=== PATIENT | male | born 1955 | race Caucasian/White ===

== ENCOUNTER 2019-11-04 21:01 | Inpatient (IN) | payer MEDICARE, OTHER ==
[~2019-11-04] VITALS: Ht 177.8 cm; Wt 114.8 kg
[~2019-11-04 21:01] MED LIST: ATACAND HCT 321 EACH PO; BAYER CHEWABLE81 MG PO; CENTRUM SILVER1 EAC2 PO; FISH OIL 1,001000 M2 PO; LEVAQUIN 500 M500 M2 PO; LIPITOR20 MG PO; METFORMIN HCL500 MG PO; METOPROLOL SUCC25 M1 PO; NORVASC10 MG PO; NORVASC2.5 MG PO; PROPRANOLOL 1010 M1 PO; TYLENOL325 MG PO
[2019-11-04 21:02] VITALS: BP 156/90
[2019-11-04 21:43] LABS: ABSOLUTE BASOPHILS 0.1 thou/uL (0.0-0.2); ABSOLUTE EOSINOPHILS 0.3 thou/uL (0.0-0.7); ABSOLUTE MONOCYTES 0.6 thou/uL (0.0-1.2); ABSOLUTE NEUTROPHILS 5.1 thou/uL (1.6-8.1); BASOPHILS 1.1 %; EOSINOPHILS 4.2 %; HEMATOCRIT 42.5 % (42.0-52.0); LYMPHOCYTES 14.4 %; MCH 25.1 pg (26.0-34.0); MCHC 32.9 g/dL (28.0-37.0); MCV 76.4 fL (80.0-100.0); MONOCYTES 8.4 %; MPV 7.5 fl. (7.2-11.1); NUCLEATED RBCS 0 /100WBC; PLATELET COUNT* 275 thou/uL (150-400); POLYS 71.9 %; RBC 5.57 mil/uL (4.50-6.00); RDW-CV 16.2 % (10.5-14.5); WBC 7.1 thou/uL (4.0-11.0)
[2019-11-04 21:51] LABS: CALCIUM 8.7 mg/dL (8.5-10.1); CREATININE 1.2 mg/dL (0.6-1.3); POTASSIUM 3.1 mmol/L (3.5-5.1)
[2019-11-04 22:01] LABS: ALBUMIN 3.7 g/dL (3.4-5.0); MAGNESIUM 1.9 mg/dL (1.8-2.4); TOTAL BILIRUBIN 0.8 mg/dL (<0.1-1.0); TOTAL PROTEIN 6.9 g/dL (6.4-8.2)
[2019-11-05] VITALS (19 sets, daily range): BP systolic 134–173; BP diastolic 66–105
--- NOTE | 2019-11-05 02:39 | NUR ---
PT ADMITTED FOR CHEST PAIN. PT BOARDING IN ED.
--- NOTE | 2019-11-05 09:20 | NUR ---
PT MEDICATIONS HELD PRIOR TO SUPERVISOR MAINSPRING FABRICATION PROCEDURE PER DR. STACK INCLUDING AM BP MEDS AND INSULIN.
--- NOTE | 2019-11-05 10:14 | EKG ---
[place] [address] ELECTROCARDIOGRAM REPORT Name: CANDICEJAVI MCKEONITH Denzel Room: [place] [address] ADM IN [facility]#: [id number] Admission: 11/05/19 Attend Phys: Jayro Rubio, Discharge: Date of : 51 Date of Service: 11/04/192100 Report #: [id number] THIS REPORT FOR: //name// [facility] ED Test Date: 2019-11-04 Test Time: 21:01:09 Pat Name: ANI ASTUDILLO Department: Room: [facility] Gender: M Family Practice Physician: LAURA : 1955 Requested By: Jeison Balbuena Order Number: [id number] MD: Bob Randle Measurements Intervals [place] Rate: 94 P: 11 SC: 175 QRS: -32 QRSD: 111 T: 60 QT: 371 QTc: 464 Interpretive Statements Sinus rhythm incomplete RBBB Probable left atrial enlargement Inferior infarct, old Compared to ECG 11/04/2013 13:16:21 No significant changes Electronically Signed On 11-05-2019 10:12:15 CDT by Bob Randle [email or web address] <ELECTRONICALLY SIGNED> By: Bob Randle MD, [facility] 11/05/19 1012 00 00 Bob Randle MD, [facility] /EPI
--- NOTE | 2019-11-05 12:15 | NUR ---
ASSUMED CARE OF PT FROM CHAIR UPHOLSTERER. PT IS ONCATH CHECKS. PT HAS NO CO OF PAIN OR NAUSEA. AT THIS TIME. HE WAS EDUCATED ON FALL SAFETY AND STAYIN IMMOBILE. NO CO OF PAIN OR NAUSEA AT THIS TIME. WILL CONTINUE TO MONITOR.
--- NOTE | 2019-11-05 20:02 | NUR ---
PATIENT REPORTING CHEST PAIN UPON ASSESSMENT RATED 4/10. BP ELEVATED. ONE SUBLINGUAL NITROGLYCERIN ADMINISTERED WITH COMPLETED RELIEF OF CHEST PAIN. BLOOD PRESSURE IMPROVED WELL.
[2019-11-06 04:22] VITALS: BP 151/88
[2019-11-06 04:40] LABS: HEMATOCRIT 40.4 % (42.0-52.0); HEMOGLOBIN 13.5 gm/dL (14.0-18.0); MCH 25.3 pg (26.0-34.0); MCHC 33.4 g/dL (28.0-37.0); MCV 75.9 fL (80.0-100.0); MPV 7.5 fl. (7.2-11.1); NUCLEATED RBCS 0 /100WBC; PLATELET COUNT* 281 thou/uL (150-400); RBC 5.32 mil/uL (4.50-6.00); RDW-CV 16.1 % (10.5-14.5); WBC 8.2 thou/uL (4.0-11.0)
[2019-11-06 04:43] LABS: CALCIUM 8.1 mg/dL (8.5-10.1); CREATININE 0.9 mg/dL (0.6-1.3); POTASSIUM 3.6 mmol/L (3.5-5.1)
[2019-11-06 04:50] LABS: CHOLESTEROL 148 mg/dL (<200); HDL CHOLESTEROL 53 mg/dL (>40); LDL CHOLESTEROL 78 mg/dL (<100); SERUM ASSESSMENT Clear; TC:HDL 2.8 Ratio (Not establshd); TRIGLYCERIDE 87 mg/dL (<150); TROPONIN-I LEVEL 1.18 ng/mL (<0.06); VLDL 17 mg/dL (<40)
--- NOTE | 2019-11-06 05:01 | NUR ---
PATIENT PROGRESSING TOWARDS GOALS: PATIENT DENIES CHEST PAIN SINCE ADMINISTRATION OF NITROGLYCERIN. RIGHT GROIN CATH SITE BRUISING BORDERS MARKED, EXTENDING SLIGHTLY FROM START OF SHIFT BUT REMAINS SOFT AND NONTENDER TO TOUCH. DRESSING C/D/I. PATIENT REMAINS ON BEDREST AT THIS TIME. CALL LIGHT WITHIN REACH
[2019-11-06 06:03] LABS: ABSOLUTE BASOPHILS 0.1 thou/uL (0.0-0.2); ABSOLUTE LYMPHOCYTES 0.7 thou/uL (0.8-5.3); ABSOLUTE MONOCYTES 0.3 thou/uL (0.0-1.2); ABSOLUTE NEUTROPHILS 7.1 thou/uL (1.6-8.1)
[2019-11-06 06:04] LABS: OVALOCYTES Occasional; PLATELET ESTIMATE ADEQUATE
[2019-11-06 06:05] LABS: POIKILOCYTOSIS 1+
[2019-11-06 08:00] VITALS: BP 153/87
--- NOTE | 2019-11-06 08:00 | NUR ---
ASSUMED CARE OF PT FROM NIGHT NURSE. PT IS DOING WELL TODAY WITH NO CO OF PAIN OR NAUSEA AT THIS. HE WAS EDUCATED ON POC AND FALL SAFETY. BED INLOWEST POSITION. CALL LIGHT IN REACH, WILL CONTINUE TO MONITOR.
[2019-11-06 12:00] VITALS: BP 146/86
--- NOTE | 2019-11-06 12:13 | EKG ---
[place] [address] ELECTROCARDIOGRAM REPORT Name: ANI ASTUDILLO Room: [address] IN ..#: [id number] Admission: 11/05/19 Attend Phys: Jayro Rubio, Discharge: Date of : 51 Date of Service: 11/05/19 1325 Report #: [id number] THIS REPORT FOR: //name// [facility] Test Date: 2019-11-05 Test Time: 13:25:11 Pat Name: ANI ASTUDILLO Department: Room: [address] Gender: M Rug Dyer Helper: KREEDCiera : 1955 Requested By: Bob Randle Order Number: [id number] Reading MD: Bob Randle Measurements Intervals [place] Rate: 102 P: 28 OR: 178 QRS: -54 QRSD: 107 T: 58 QT: 361 QTc: 471 Interpretive Statements Sinus tachycardia Probable left atrial enlargement Inferior infarct, old Compared to ECG 11/04/2019 21:01:09 Sinus rhythm no longer present Right bundle-branch block no longer present Myocardial infarct finding still present Electronically Signed On 11-06-2019 12:11:44 CDT by Bob Randle [email or web address] <ELECTRONICALLY SIGNED> By: Bob Randle MD, [facility] 11/06/19 1211 1325 1325 Bob Randle MD, FAC /EPI
--- NOTE | 2019-11-06 12:17 | EKG ---
[place] [address] ELECTROCARDIOGRAM REPORT Name: ANI ASTUDILLO Room: [address] IN [facility]#: [id number] Admission: 11/05/19 Attend Phys: Jayro Rubio, Discharge: Date of : 51 Date of Service: 11/06/19 0616 Report #: [id number] THIS REPORT FOR: //name// [facility] Test Date: 2019-11-06 Test Time: 06:16:29 Pat Name: ANI ASTUDILLO Department: Room: [facility] Gender: M Ems Educator: : 1955 Requested By: Bob Randle Order Number: [id number] Priscilla MD: Bob Randle Measurements Intervals [place] Rate: 87 P: 9 GA: 194 QRS: -41 QRSD: 109 T: 63 QT: 400 QTc: 482 Interpretive Statements Sinus rhythm Probable left atrial enlargement Abnormal R-wave progression, late transition Inferior infarct, old Baseline wander in lead(s) V3 Electronically Signed On 11-06-2019 12:15:52 CDT by Bob Randle [email or web address] <ELECTRONICALLY SIGNED> By: Bob Randle MD, [facility] 11/06/19 1215 5 Bob Randle MD, [facility] /EPI
--- NOTE | 2019-11-06 14:07 | CARD ---
[address] [address] CARDIAC CATH REPORT Name: ANI ASTUDILLO Room: [address] IN [facility]#: [id number] Admission: 11/05/19 Attend Phys: Jayro Rubio MD Discharge: Date of : 51 Report #: [id number] THIS REPORT FOR: //name// cc: Alexander Acuna Vincent R. DO ~ APPROVED REPORT Study performed: 11/05/2019 09:23:16 Patient Details Patient Status: In-Patient Room #: The patient is a 64 year-old male Event Personnel Bob Randle Manager Medical Device, Arely Simpson RN, Isabela Kowalski RN RN, Lester Carrasco DIRECTOR OF PROVIDER RELATIONS Monitor, Saba Guerra RTR Scrub Procedures Performed cath pci Indication Abnormal ECG, Non-STEMI , Chest pain Risk Factors Hypercholesterolemia, Coronary Artery DiseaseHypertension Previous Procedures/Diagnoses Previous CABGPrevious PCI Admission/Lab Medications/Medications given during procedure Heparin Unfract. Procedure Narrative The patient was brought urgently to the Cardiac Catheterization Laboratory and was prepped and draped in a sterile manner. The right femoral was infiltrated with 1% Lidocaine subcutaneous anesthesia. A 6Fr X 23cm Sheath sheath was inserted into the right femoral artery. Coronary angiography was performed using coronary diagnostic catheters. The right coronary system was accessed and visualized with a Diagnostic - JR4 catheter. The left coronary system was accessed and visualized with a Diagnostic - JL4 catheter. The left ventricle was accessed and visualized with a Diagnostic - ANG PIG catheter. Left ventricular/Aortic Valve gradient assessed via catheter pullback. Left ventriculogram was performed [place] [address] CARDIAC CATH REPORT Name: ANI ASTUDILLO Room: [address]#: [id number] Admission: 11/05/19 Attend Phys: Jayro Rubio MD Discharge: Date of : 51 Report #: [id number] Closure device was deployed with a 6 Fr MynxGrip 6/7F. The patient tolerated the procedure well and there were no complications associated with the procedure. A hematoma occurred. DEL REAL GRAFT INJECTED with DEL REAL catheter SVG to CIRC injected -using jr4 SVG to RCA injected - --using jr4 Intraoperative Conscious Sedation Sedation start time: 1018 Case end Time: 1124 Fentanyl 50 mcg Versed 3 mg Fluoro Time: 17.9 minutes Dose: DAP 436599 cGycm2 2281 mGy Contrast Type and Amount: Visipaque 190 ml Coronary Angiography The patient's coronary anatomy is right dominant. [place] Artery Percent Stenosis DEL REAL graft to the mid LAD had 0% stenosis. The SVG to the circumflex, and the SVG to the RCA appeared 100% proximaly occluded Diagnostic Cath Left Main 95% proximal stenosis LAD 100% chronic occlusion in the mid LAD Diagonal 1 small vessel Diagonal 2 small vessel with 90% mid stenosis Diagonal 3 100% proximaly occluded Circumflex 50% proximal stenosis. Stent in the mid circumflex had 0% restenosis Right Coronary 100% chronic stenosis in the mid rca beyond the rv branch. The distal rca filled retrograde by collaterals from the left coronary artery. Left Ventriculography The left ventricular ejection fraction is estimated to be 60-65%. Left ventricular wall motion abnormalities are not present. There is no mitral insufficiency. Hemodynamics The aortic pressure is 151/80 mmHg with a mean of 118 mmHg. The left ventricular pressure is 161/21 mmHg with a mean of mmHg. The left ventricular end diastolic pressure is 30 mmHg. There was no gradient across the aortic valve upon pullback. Pullback from the left ventricle to the aorta revealed no gradient across [place] [address] CARDIAC CATH REPORT Name: ANI ASTUDILLO Room: [address]#: [id number] Admission: 11/05/19 Attend Phys: Jayro Rubio MD Discharge: Date of : 51 Report #: [id number] PCI Technique Lesion Anticoagulation was achieved with Heparin. Percutaneous coronary intervention was performed on the SVG to the circumflex artery.. The lesion stenosis prior to intervention was 100% with CAROLYN 0 flow. A 6F RCB 100CM Guide Catheter was used to engage the svg ostium. A Choice PT Wire 182cm Interventional Guidewire was used to cross the lesion. BALLOON DILATION Unable to cross the occlusion suggesting the stenosis represented a chronic occlusion Final angiography reveals 100 % stenosis with CAROLYN 0 flow. COMMENTS SVG to the RCA and CIRC attempted to intervention. Chronically closed. PCI Technique Lesion 2 Percutaneous Coronary Intervention was performed on the SVG to the rca. Percutaneous coronary intervention was performed on the SVG to the rca. The lesion stenosis prior to intervention was 100% with CAROLYN 0 flow. A 6 fr MTP Guide Catheter was used to engage the svg ostium. A choice PT extra support Interventional Guidewire was used to cross the lesion. Balloon Dilation Unable to advance the wire across the stenosis, suggesting the occlusion was chronic Final angiography reveals 100 % stenosis with CAROLYN 0 flow. Conclusion 1. 95% stenosis of the left main artery. 2. 100% chronic occlusion of the mid lad 3. no restenosis of stent in the mid circumflex artery. 4. 100% chronic occlusion of the rca 5. 100% chronic occlusion of svg's to the rca and circumflex artery. 6. unnsuccessful crossing of the occlusion in the svg to the circumflex and RCA 7. LVEF 60-65% [place] [address] CARDIAC CATH REPORT Name: ANI ASTUDILLO Room: [address] IN ..#: [id number] Admission: 11/05/19 Attend Phys: Jayro Rubio MD Discharge: Date of : 51 Report #: [id number] Recommendations consider stenting of the left main artery <ELECTRONICALLY SIGNED> By: Bob Randle MD, [facility] 11/06/19 1404 1404 1404Djody Randle MD, [facility] /INF
[2019-11-06 16:00] VITALS: BP 140/77
[2019-11-06 19:50] VITALS: BP 155/90
[2019-11-07] VITALS: BP 157/87
[2019-11-07 05:00] VITALS: BP 155/93
[2019-11-07 07:03] LABS: ABSOLUTE BASOPHILS 0.1 thou/uL (0.0-0.2); ABSOLUTE EOSINOPHILS 0.2 thou/uL (0.0-0.7); ABSOLUTE LYMPHOCYTES 1.2 thou/uL (0.8-5.3); ABSOLUTE MONOCYTES 0.9 thou/uL (0.0-1.2); ABSOLUTE NEUTROPHILS 6.5 thou/uL (1.6-8.1); BASOPHILS 0.7 %; EOSINOPHILS 2.6 %; HEMATOCRIT 39.7 % (42.0-52.0); HEMOGLOBIN 12.9 gm/dL (14.0-18.0); LYMPHOCYTES 13.6 %; MCHC 32.4 g/dL (28.0-37.0); MCV 77.1 fL (80.0-100.0); MONOCYTES 9.9 %; MPV 7.4 fl. (7.2-11.1); NUCLEATED RBCS 0 /100WBC; PLATELET COUNT* 241 thou/uL (150-400); POLYS 73.2 %; RBC 5.15 mil/uL (4.50-6.00); RDW-CV 16.1 % (10.5-14.5); WBC 8.9 thou/uL (4.0-11.0)
[2019-11-07 07:12] LABS: CALCIUM 8.1 mg/dL (8.5-10.1); CREATININE 0.8 mg/dL (0.6-1.3); POTASSIUM 3.4 mmol/L (3.5-5.1)
[2019-11-07 08:00] VITALS: BP 141/88
[2019-11-07 12:08] VITALS: BP 148/90
--- NOTE | 2019-11-07 12:50 | CON ---
[address] [address] CONSULTATION Name: ANI ASTUDILLO Room: [address] IN .R.#: [id number] Admission: 11/05/19 Attend Phys: Jayro Rubio MD Discharge: Date of : 51 Report #: [id number] THIS REPORT FOR: //name// cc: Alexander Acuna Vincent R. DO THIS REPORT FOR: //name// CC: Jayro Acuna DO DATE OF SERVICE: 11/05/2019 CARDIOLOGY CONSULTATION HISTORY OF PRESENT ILLNESS: The patient is a 64-year-old single white male who I was asked to see in the Emergency Room today after he complained of chest pain. The patient has an extensive past medical history. Unfortunately, none of his old records are available. The patient states that in 2000, he had chest pain when he walked. He was found to have multivessel coronary artery disease and underwent quadruple coronary artery bypass surgery at [facility]. Apparently, occluded vein grafts and the DEL REAL graft. He then moved to [place], [place]. In 2007, he had chest pain and had a repeat cardiac catheterization and had a 2.5 x 12 mm long coronary stent placed in the circumflex artery. He has done well since that time. He does note that recently when he exerts himself, he does develop a tightness in his chest. There has never been prolonged. Last night after dinner, he felt a pressure in his chest and in his left arm. Denied any diaphoresis, nausea or shortness of breath. Denied any recent fever, cough, bleeding. He had no belch with the episode. He called paramedics. He was given nitroglycerin and the pain eventually resolved after a couple of hours. He was admitted for further evaluation and treatment. He denies exertional dyspnea, palpitations or syncope. Does have occasional edema. PAST MEDICAL HISTORY: Otherwise, he had previous removal of part of his kidney for a mass. It was not cancer. He has diabetes, hypertension, hyperlipidemia. MEDICATIONS: Consist of metoprolol, aspirin, Lipitor, metformin, Atacand HCT, amlodipine. ALLERGIES: HE HAS A PREVIOUS REACTION TO INTRAVENOUS CONTRAST, WHICH HE DEVELOPED A RASH. FAMILY HISTORY: His father had heart disease. SOCIAL HISTORY: He is single, has no children, lives by himself. 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 No history of smoking or alcohol abuse. REVIEW OF SYSTEMS: He has had no history of stroke, asthma, peptic ulcer disease. He apparently had bloody stool in the past. Colonoscopy showed no significant abnormality. He has had a kidney stone. No cancer. PHYSICAL EXAMINATION: GENERAL: Revealed a middle-aged male who appeared in no distress. VITAL SIGNS: He had a blood pressure of 140/80, pulse is 80, he is afebrile. HEENT: He was anicteric. Conjunctivae are pink. Mucous membranes moist. NECK: Veins not distended. No carotid bruits. CHEST: Clear to auscultation. CARDIOVASCULAR: Regular rate and rhythm. No significant murmur. ABDOMEN: Soft. EXTREMITIES: Had no edema. Dorsalis pedis pulse 2+ bilaterally. SKIN: Warm, dry. NEUROLOGIC: Nonfocal. RADIOLOGICAL DATA: His ECG showed a normal sinus rhythm. His workup in the Emergency Room last night, he had a portable chest x-ray that showed normal heart size, clear lung jackson. LABORATORY DATA: Sodium 137, potassium is only 3.1, creatinine 1.2, glucose 316. His liver function studies were normal. Troponin initially 0.06, this morning is 0.71. His white blood cell count 7.1, hemoglobin 14.0. IMPRESSION AND RECOMMENDATIONS: 1. Non-ST elevation myocardial infarction. Recommend repeat cardiac catheterization. 2. Previous coronary artery bypass surgery. 3. Hypertension. The patient is on an ARB, beta-gen, calcium gen and diuretic. 4. Diabetes. 5. Hyperlipidemia. The patient is on a statin drug. 6. Previous history of kidney stone. 7. Contrast allergy. I would pretreat with steroids. <ELECTRONICALLY SIGNED> By: Bob Randle MD, [facility] 11/07/19 1250 0848 [id number] Randle MD, FAC /nt
--- NOTE | 2019-11-07 13:06 | NUR ---
PT IS RESTING IN BED AT THIS TIME. NO COMPLAINTS AT THIS TIME. SITE TO RIGHT GROIN IN TACT. PT TO BE OFF BEDREST STATUS AT 1330. WCTM
--- NOTE | 2019-11-07 13:39 | NUR ---
Pt is A&O. Resides at home alone. Independent. No DME. No hx of HH or SNF. Pt had a cath, no interventions were done. Per Pt, he thinks that he will have a repeat cath tomorrow with Dr Rajan. Cardiac rehab nurse to see. Goal is home at [place]. Following.
[2019-11-07 16:13] VITALS: BP 151/85
[2019-11-07 19:50] VITALS: BP 169/92
[2019-11-08] VITALS (14 sets, daily range): BP systolic 140–175; BP diastolic 68–102
--- NOTE | 2019-11-08 06:51 | NUR ---
PT ELEVATED BP, GIVEN MEDICATION, BP IM PROVED
[2019-11-08 07:47] LABS: ABSOLUTE BASOPHILS 0.1 thou/uL (0.0-0.2); ABSOLUTE EOSINOPHILS 0.3 thou/uL (0.0-0.7); ABSOLUTE LYMPHOCYTES 1.3 thou/uL (0.8-5.3); ABSOLUTE MONOCYTES 0.9 thou/uL (0.0-1.2); ABSOLUTE NEUTROPHILS 6.4 thou/uL (1.6-8.1); BASOPHILS 0.9 %; EOSINOPHILS 3.4 %; HEMATOCRIT 42.1 % (42.0-52.0); HEMOGLOBIN 13.6 gm/dL (14.0-18.0); LYMPHOCYTES 14.6 %; MCH 24.8 pg (26.0-34.0); MCHC 32.4 g/dL (28.0-37.0); MCV 76.6 fL (80.0-100.0); MONOCYTES 9.9 %; MPV 7.9 fl. (7.2-11.1); NUCLEATED RBCS 0 /100WBC; PLATELET COUNT* 277 thou/uL (150-400); POLYS 71.2 %; RBC 5.49 mil/uL (4.50-6.00); RDW-CV 16.4 % (10.5-14.5)
[2019-11-08 08:02] LABS: CALCIUM 8.6 mg/dL (8.5-10.1); CREATININE 0.8 mg/dL (0.6-1.3); POTASSIUM 3.7 mmol/L (3.5-5.1)
[2019-11-08 08:05] LABS: TROPONIN-I LEVEL 0.6 ng/mL (<0.06)
--- NOTE | 2019-11-08 09:01 | NUR ---
ASSUMED PT. CARE AND RECEIVED REPORT AT 0730. PT A/OX4, VSS, PT. DENIES CURRENT PAIN, JUST REPORTS TENDERNESS WITH PALPITATION AT PREVIOUS CATH SITE. FULL ASSESSMENT COMPLETED, REFER TO CHARTING. PT NPO FOR CATH TODAY, STATES UNDERSTANDING. CALL LIGHT IN REACH, WILL CONTINUE WITH PLAN OF CARE.
--- NOTE | 2019-11-08 12:56 | NUR ---
Per , Pt to have repeat cath today, plan dc home tomorrow.
--- NOTE | 2019-11-08 13:00 | NUR ---
ASSUMED CARE OF PATIENT THIS AFTERNOON. PT IS GETTING READY TO HAVE A CARDIAC CATH. WILL CONTINUE TO MONITOR
--- NOTE | 2019-11-08 15:31 | EKG ---
[place] [address] ELECTROCARDIOGRAM REPORT Name: ANI ASTUDILLO Room: [address] ADM IN ..#: [id number] Admission: 11/05/19 Attend Phys: Jayro Rubio, Discharge: Date of : 51 Date of Service: 11/08/19 1448 Report #: [id number] THIS REPORT FOR: //name// [facility] Test Date: 2019-11-08 Test Time: 14:48:42 Pat Name: ANI ASTUDILLO Department: Room: [address] Gender: M Med Surg Nurse: : 1955 Requested By: Eduardo Carr Order Number: [id number] Reading MD: Eduardo Carr Measurements Intervals [place] Rate: 97 P: 22 OR: 188 QRS: -42 QRSD: 105 T: 57 QT: 368 QTc: 468 Interpretive Statements Sinus rhythm Possible left atrial enlargement Inferior infarct, old Compared to ECG 11/06/2019 06:16:29 No significant changes Electronically Signed On 11-08-2019 15:30:42 CDT by Eduardo Carr [email or web address] <ELECTRONICALLY SIGNED> By: Eduardo Carr MD, FAC 11/08/19 1530 1448 1448 Eduardo Carr MD, [facility] /EPI
--- NOTE | 2019-11-08 16:00 | CARD ---
[address] [address] CARDIAC CATH REPORT Name: ANI ASTUDILLO Room: [address] IN [place].#: [id number] Admission: 11/05/19 Attend Phys: Jayro Rubio MD Discharge: Date of : 51 Report #: [id number] THIS REPORT FOR: //name// cc: Alexander Acuna Vincent R. DO ~ APPROVED REPORT Study performed: 11/08/2019 12:44:23 Patient Details Patient Status: In-Patient Room #: The patient is a 64 year-old male Event Personnel Eduardo Carr Resident Advisor, Wilbur Rajan Civil Drafting Technician, Mayi Villalobos RN Lawn Maintenance Worker, Celso Cooney PULMONARY PHYSICIAN Scrub, Osiris Villalobos RTR Monitor Dr. Bruno Rajan Procedures Performed Art Access - L femoral artery, ALEX Place w/wo Plasty Single Left Main , PTCA Addl Branch LAD PCIADDL , Hemostasis w/ Angioseal; selective coronary arteriography Indication Non-STEMI Risk Factors Hypercholesterolemia, Hypertension Admission/Lab Medications/Medications given during procedure Solumedrol IV 125 mg, Benadryl IV 50 mg, Angiomax IV 17 ml IV bolus, Angiomax Drip IV 40.18 ml per hr, Nitroglycerin SL 0.4 mg, Angiomax IV 4 ml IV bolus , Plavix PO 150 mg Procedure Narrative The patient was brought electively to the Cardiac Catheterization Laboratory and was prepped and draped in a sterile manner. The left femoral was infiltrated with 2% Lidocaine subcutaneous anesthesia. A 6F Shannon sheath was inserted into the left femoral artery. Coronary angiography was performed using coronary diagnostic catheters. The left coronary system was accessed and visualized with a 6F XB LAD 3.5 catheter. Pre-demployment femoral angiogram was performed . Closure device was deployed with a 6 Fr Angioseal STS. The patient tolerated the procedure well [place] [address] CARDIAC CATH REPORT Name: ANI ASTUDILLO Room: [address]#: [id number] Admission: 11/05/19 Attend Phys: Jayro Rubio MD Discharge: Date of : 51 Report #: [id number] complications associated with the procedure. There was no hematoma. This was a scheduled PCI procedure. Intraoperative Conscious Sedation Sedation start time: 13:41 Case end Time: 14:27 Fentanyl 100 mcg Versed 2 mg Fluoro Time: 15.8 minutes Dose: DAP 112857 cGycm2 2289 mGy Contrast Type and Amount: Visipaque 220 ml Hemodynamics The aortic pressure is 161/79 mmHg with a mean of 116 mmHg. PCI Technique Lesion Anticoagulation was achieved with Angiomax. Patient was preloaded with Angiomax IV 17 ml IV bolus. Percutaneous coronary intervention was performed on the Distal Left Main coronary artery/ Proximal Circumflex artery. The lesion stenosis prior to intervention was 90% with CAROLYN 3 flow. A 6F XB LAD 3.5 Guide Catheter was used to engage the left main ostium. A BMW 190cm Interventional Guidewire was used to cross the lesion. BALLOON DILATION A Balloon catheter Mini Trek RX 2.0 X 12 was inserted and inflated up to 18.00atm for 9seconds. Additional Inflation: 8.00atm for 18seconds. STENT DEPLOYMENT A drug-eluting stent Blackey RX Stent 2.24L92lt was inserted and inflated up to 15.00atm for 10seconds. Additional Inflation: 18.00atm for 8seconds. POST STENT DEPLOYMENT BALLOON DILATION A Balloon catheter NC Trek RX 3.0 X 8 was inserted and inflated up to 10.00atm for 5seconds. Additional Inflation: 16.00atm for 6seconds. Additional Inflation: 16.00atm for 6seconds. Final angiography reveals 10 % stenosis with CAROLYN 3 flow. PCI Technique Lesion 2 Percutaneous Coronary Intervention was performed on the proximal left anterior descending artery segment. Patient was preloaded with Angiomax IV 17 ml IV bolus. The lesion stenosis prior to intervention was 80% with CAROLYN 3 flow. A 6F XB LAD 3.5 Guide [place] [address] CARDIAC CATH REPORT Name: ANI ASTUDILLO Room: [address]#: [id number] Admission: 11/05/19 Attend Phys: Jayro Rubio MD Discharge: Date of : 51 Report #: [id number] engage the left main ostium. A ProwaterFlex 180CM Interventional Guidewire was used to cross the lesion. Balloon Dilation A Balloon catheter NC Trek RX 2.75 X 12 was inserted and inflated up to 18.00atm for 6seconds. Additional Inflation: 22.00atm for 5seconds. A Trek RX 2.5 x 12 was inserted and inflated up to 12 julia for 11 seconds. Additional Inflation: 14 julia for 4 seconds. Final angiography reveals 50 % stenosis with CAROLYN 3 flow. Conclusion 1. Severe coronary artery disease characterized by the following: A 90% calcified distal left main coronary stenosis B 75% ostial LAD stenosis with 100% mid vessel occlusion C 90% ostial circumflex stenosis with 60% mid vessel narrowing 2. Previously defined widely patent DEL REAL graft to the LAD 3. Successful PCI with deployment of a drug-eluting stent at the site of 90% distal left main coronary stenosis extending into the ostium of the circumflex with 10% residual narrowing 4. Successful PTCA at the site of ostial 75% LAD stenosis with 50% residual narrowing and CAROLYN III flow to the mid LAD 5. Mild systemic systolic hypertension Recommendations Cardiac Risk Reduction Program Aggressive Medical Therapy Medications Administered Aspirin (any) Diagnostic Cath Approved by: Eduardo Carr MD Date/Time: 11/08/2019 15:56:10 <ELECTRONICALLY SIGNED> By: Wilbur Rajan MD, [facility] 11/08/19 1559 1559 1559Wilbur Rajan MD, FAC /INF
[2019-11-09] VITALS: BP 157/99
[2019-11-09 03:53] VITALS: BP 169/95
[2019-11-09 06:25] LABS: HEMATOCRIT 41.5 % (42.0-52.0); HEMOGLOBIN 13.5 gm/dL (14.0-18.0); MCHC 32.6 g/dL (28.0-37.0); MCV 76.8 fL (80.0-100.0); MPV 7.8 fl. (7.2-11.1); RBC 5.4 mil/uL (4.50-6.00); RDW-CV 16.2 % (10.5-14.5); WBC 8.4 thou/uL (4.0-11.0)
--- NOTE | 2019-11-09 06:29 | NUR ---
ASSUMED CARE OF PT AFTER REPORT AT 1930. PT A&OX4. VSS. PHYSICAL ASSESSMENT COMPLETED AND CHARTED. PT ON O2 AT 2L NC. PT TRACING SR/ST ON TELE. PT UPADLIB TO RESTROOM. PT COMPLAINED OF LRFT GROIN PAIN-MED GIVEN PER JUL. POST CATH SITE TO LEFT GROIN CLEAN, DRY & INTACT. CALL LIGHT WITHIN REACH.
[2019-11-09 06:37] LABS: ALBUMIN 3.6 g/dL (3.4-5.0); CALCIUM 8.1 mg/dL (8.5-10.1); CREATININE 0.9 mg/dL (0.6-1.3); POTASSIUM 3.8 mmol/L (3.5-5.1); TOTAL PROTEIN 7.3 g/dL (6.4-8.2)
[2019-11-09 08:00] VITALS: BP 161/91
--- NOTE | 2019-11-09 08:10 | NUR ---
ASSUMED CARE OF PATIENT FROM NIGHT NURSE. PT HAS NO CO OF PAIN OR NAUSEA. HE WAS EDUCATED ON POC AND FALL SAFETY. HE IS WORKING TOWARDS DISCHARGE TODAY. BED IN LOWEST POSITION AND CALL LIGHT IN REACH.
[2019-11-09 12:25] VITALS: BP 149/75
[2019-11-09 16:45] LABS: BE -1.3 mmol/L (-2 to +3); PCO2 44.1 mmHg (35.0-45.0); pH 7.359 (7.340-7.450)
[2019-11-09 16:48] LABS: PO2 56.9 mmHg (75.0-100.0)
--- NOTE | 2019-11-09 17:06 | EKG ---
[place] [address] ELECTROCARDIOGRAM REPORT Name: ANI ASTUDILLO Room: [address] ADM IN ..#: [id number] Admission: 11/05/19 Attend Phys: Jayro Rubio, Discharge: Date of : 51 Date of Service: 11/09/19620 Report #: [id number] THIS REPORT FOR: //name// [facility] Test Date: 2019-11-09 Test Time: 06:21:47 Pat Name: ANI ASTUDILLO Department: Room: [address] Gender: M Dining Room Maid: [id number] : 1955 Requested By: Eduardo Carr Order Number: [id number] Priscilla MD: Wilbur Rajan Measurements Intervals [place] Rate: 88 P: NV: QRS: -39 QRSD: 114 T: 80 QT: 383 QTc: 464 Interpretive Statements Sinus rhythm Borderline IVCD with LAD Inferior infarct, old Compared to ECG 11/08/2019 14:48:42 Myocardial infarct finding still present Electronically Signed On 11-09-2019 17:04:52 CDT by Wilbur Rajan [email or web address] <ELECTRONICALLY SIGNED> By: Wilbur Rajan MD, [facility] 11/09/19 1704 0 Wilbur Rajan MD, [facility] /EPI
[2019-11-09 20:00] VITALS: BP 133/63
[2019-11-09 23:58] VITALS: BP 125/70
[2019-11-10 04:00] VITALS: BP 153/93
--- NOTE | 2019-11-10 06:12 | NUR ---
ASSUMED CARE OF PT AFTER REPORT AT 1930. PT A&OX4. VSS. PHYSICAL ASSESSMENT COMPLETED AND CHARTED. PT ON O2 AT 3L NC. PT TRACING SR ON TELE. PT UPADLIB TO RESTROOM. FLEET JONATAN GIVEN-ABLE TO HAVE BM. PT AANBLE TO SLEEP WELL ON BED. CALL LIGHT WITHIN REACH.
[2019-11-10 08:00] VITALS: BP 124/78
--- NOTE | 2019-11-10 11:09 | NUR ---
ASSUMED PT CARE AT 0730, PT SITTING UP IN BED, SATTING 92% ON RA, TRACING SR ON THE OUTREACH LIBRARIAN AND HAS NO C/O PAIN OR SHORTNESS OF BREATH BUT STATES HIS LOWER ABD IS STILL A LITTLE UNCOMFORTABLE, BUT IT'S BETTER THAN YESTERDAY AFTER HAVING A LARGE BM. PT HAD ANOTHER BM THIS MORNING AND HAS AMBULATED MULTIPLE TIMES TODAY TO ENCOURAGE GI MOTILITY. PT L GROIN CATH SITE C/D/I W/ BANDAID IN PLACE AND RT GROIN CATH SITE HAS BRUISING OVER RUE, GROIN AND RT HIP W/ NODULE NOTED UNDER CATH SITE. PT GOAL IS TO INCREASE ACTIVITY AND CONTINUE TO HAVE BM'S TO DECREASE ABD DISCOMFORT AND WORK ON DC PLANNING. AM ASSESSMENT CHARTED, MEDS PER MAR, HOURLY ROUNDING OBSERVED, PT IS UP AD ALANA, WILL CONTINUE POC.
[2019-11-10] MEDS ORDERED: NITROGLYCERIN0.4 MG SUBLING (11:40)
[2019-11-10] MEDS ORDERED: EFFIENT10 MG PO (11:42)
[2019-11-10 11:48] VITALS: BP 164/83
[2019-11-10 12:00] VITALS: BP 145/85
--- NOTE | 2019-11-10 17:00 | NUR ---
DC ORDERS RECEIVED. DC INSTRUCTIONS, SCRIPTS, CARE NOTES AND F/U APPTS. GIVEN TO PT, PT COMMUNICATES UNDERSTANDING OF DC TEACHING. RESEARCH ADVISOR AND IV REMOVED. PT DC'D BY WC W/ NURSING STAFF TO NEIGHBOR'S PERSONAL VEHICLE.
== END 2019-11-10 16:50 | disposition home or self-care (01) | DRG 246 ==
LOC: M.ERS 21:01 → M.TBA-ER 22:55 → M.2W 11-05 08:09 → M.TBA-ER 11-05 08:09 → M.2W 11-05 12:10
PROVIDERS: Emergency Medicine Emergency Medical Services; Internal Medicine Cardiovascular Disease; ADMIT Internal Medicine; ATTEND Internal Medicine
PROC: B213YZZ Fluoroscopy of Multiple Coronary Artery Bypass Grafts using Other Contrast (ICD-10-PCS; principal; 2019-11-05)
PROC: B211YZZ Fluoroscopy of Multiple Coronary Arteries using Other Contrast (ICD-10-PCS; principal; 2019-11-05)
PROC: B218YZZ Fluoroscopy of Left Internal Mammary Bypass Graft using Other Contrast (ICD-10-PCS; principal; 2019-11-05)
PROC: 02JA3ZZ Inspection of Heart, Percutaneous Approach (ICD-10-PCS; principal; 2019-11-05)
PROC: 4A023N7 Measurement of Cardiac Sampling and Pressure, Left Heart, Percutaneous Approach (ICD-10-PCS; principal; 2019-11-05)
PROC: B215YZZ Fluoroscopy of Left Heart using Other Contrast (ICD-10-PCS; principal; 2019-11-05)
PROC: 3E053GC Introduction of Other Therapeutic Substance into Peripheral Artery, Percutaneous Approach (ICD-10-PCS; 2019-11-07)
PROC: B41FYZZ Fluoroscopy of Right Lower Extremity Arteries using Other Contrast (ICD-10-PCS; 2019-11-08)
PROC: B211YZZ Fluoroscopy of Multiple Coronary Arteries using Other Contrast (ICD-10-PCS; 2019-11-08)
PROC: 027034Z Dilation of Coronary Artery, One Artery with Drug-eluting Intraluminal Device, Percutaneous Approach (ICD-10-PCS; 2019-11-08)
PROC: 4A023N7 Measurement of Cardiac Sampling and Pressure, Left Heart, Percutaneous Approach (ICD-10-PCS; 2019-11-08)
PROC: 02703ZZ Dilation of Coronary Artery, One Artery, Percutaneous Approach (ICD-10-PCS; 2019-11-08)
DX: I21.4 Non-ST elevation (NSTEMI) myocardial infarction (principal); I50.31 Acute diastolic (congestive) heart failure; K56.7 Ileus, unspecified; E11.9 Type 2 diabetes mellitus without complications; E78.5 Hyperlipidemia, unspecified; K59.00 Constipation, unspecified; I25.10 Atherosclerotic heart disease of native coronary artery without angina pectoris; E66.9 Obesity, unspecified; R25.1 Tremor, unspecified; I11.0 Hypertensive heart disease with heart failure; S30.1XXA Contusion of abdominal wall, initial encounter; I72.9 Aneurysm of unspecified site; Z95.1 Presence of aortocoronary bypass graft; Z95.5 Presence of coronary angioplasty implant and graft; Z90.5 Acquired absence of kidney; Z91.041 Radiographic dye allergy status; Z68.36 Body mass index [BMI] 36.0-36.9, adult; Z82.49 Family history of ischemic heart disease and other diseases of the circulatory system; Z79.82 Long term (current) use of aspirin; Z79.899 Other long term (current) drug therapy; X58.XXXA Exposure to other specified factors, initial encounter; Y93.89 Activity, other specified; Y92.89 Other specified places as the place of occurrence of the external cause; Y99.8 Other external cause status

== ENCOUNTER 2020-03-14 07:28 | Observation (INO) | payer MEDICARE, OTHER ==
[~2020-03-14] VITALS: Ht 177.8 cm; Wt 100.7 kg
[2020-03-14] VITALS (15 sets, daily range): BP systolic 130–149; BP diastolic 74–96
--- NOTE | ~2020-03-14 | H ---
[address] [address] HISTORY AND PHYSICAL Name: ANI ASTUDILLO Room: [address] Ge Mcgill#: [id number] Admission: 03/14/20 Attend Phys: Wilbur Rajan MD, Discharge: 03/15/20 Date of : 51 Report #: [id number] THIS REPORT FOR: //name// cc: Alexander Acuna Vincent R. DO ~ Please refer to the History and Physical performed in the physician's office. By: 0700Medical Records Staff ALICIA /JADE
[~2020-03-14 07:28] MED LIST changes: +EFFIENT10 MG PO; +NITROGLYCERIN0.4 MG SUBLING
[2020-03-14 08:10] LABS: HEMATOCRIT 46.9 % (42.0-52.0); HEMOGLOBIN 15.2 gm/dL (14.0-18.0); MCH 24.7 pg (26.0-34.0); MCHC 32.5 g/dL (28.0-37.0); MCV 76.1 fL (80.0-100.0); MPV 7.6 fl. (7.2-11.1); RBC 6.16 mil/uL (4.50-6.00); RDW-CV 16.4 % (10.5-14.5)
[2020-03-14 08:20] LABS: ANION GAP 15 mmol/L (7-16); BUN 19 mg/dL (7-18); CALCIUM 9.7 mg/dL (8.5-10.1); CHLORIDE 95 mmol/L (98-107); CO2 25 mmol/L (21-32); CREATININE 1.1 mg/dL (0.6-1.3); GLUCOSE 386 mg/dL (70-99); POTASSIUM 3.8 mmol/L (3.5-5.1); SODIUM 135 mmol/L (136-145)
[2020-03-14] MEDS ORDERED: CANDESARTAN-HC1 EAC2 PO (08:21)
[2020-03-14 08:23] LABS: APTT 23.8 Seconds (25.0-31.3); PROTIME 10.8 Seconds (9.20-11.50)
[2020-03-14 08:25] LABS: ALKALINE PHOSPHATASE 71 U/L (46-116); CHOLESTEROL 143 mg/dL (<200); HDL CHOLESTEROL 52 mg/dL (>40); LDL CHOLESTEROL 74 mg/dL (<100); SGOT 13 U/L (15-37); SGPT 29 U/L (30-65); TC:HDL 2.8 Ratio (Not establshd); TOTAL BILIRUBIN 0.8 mg/dL (<0.1-1.0); TOTAL PROTEIN 8.1 g/dL (6.4-8.2); TRIGLYCERIDE 88 mg/dL (<150); VLDL 18 mg/dL (<40)
[2020-03-14] MEDS ORDERED: NIACIN ER1000 MG PO (08:25)
[2020-03-14] MEDS ORDERED: PROPRANOLOL PO (08:25)
[2020-03-14 08:26] LABS: SERUM ASSESSMENT Clear
[2020-03-14] MEDS ORDERED: FARXIGA10 MG PO (08:26)
--- NOTE | 2020-03-14 17:01 | NUR ---
AFTER 1630 VS, GROIN CHECK, AND GROIN DRSG CHANGE PT AMBULATED TO BR WITH SBA. GROIN CHECKED AFTER RETURN TO BED, NO DRNG NOTED TO NEW [place]AU[place] DRSG, NO HEMATOMA. DRESSING REMAINS C/D/I AT THIS TIME, NO HEMATOMA OR ALTERED SENSATION OF RLE. R PEDAL AND POSTERIOR PULSES REMAIN 2+, CONSISTENT WITH PREOP FINDINGS.
--- NOTE | 2020-03-14 17:49 | EKG ---
[place] [address] ELECTROCARDIOGRAM REPORT Name: JAVI ASTUDILLOITH Denzel Room: [address] M.R.#: [id number] Admission: 03/14/20 Attend Phys: Jorge Luis Montoya Discharge: Date of : 51 Date of Service: 03/14/20 0806 Report #: [id number] THIS REPORT FOR: //name// [facility] Test Date: 2020-03-14 Test Time: 08:06:07 Pat Name: ANI ASTUDILLO Department: Room: [facility] Gender: M Sole Tier: : 1955 Requested By: Wilbur Rajan Order Number: [id number] Priscilla MD: Eduardo Carr Measurements Intervals [place] Rate: 79 P: 15 CO: 189 QRS: -39 QRSD: 111 T: 87 QT: 396 QTc: 455 Interpretive Statements Sinus rhythm Probable left atrial enlargement Inferior infarct, old Compared to ECG 11/09/2019 06:21:47 No significant changes Electronically Signed On 03-14-2020 17:48:55 CDT by Eduardo Carr [email or web address] <ELECTRONICALLY SIGNED> By: Eduardo Carr MD, FACC 03/14/20 1748 5 5 Eduardo Carr MD, FACC /EPI
--- NOTE | 2020-03-14 17:49 | EKG ---
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 : 1955 Requested By: Wilbur Rajan Order Number: [id number] Priscilla MD: Eduardo Carr Measurements Intervals [place] Rate: 83 P: 15 CO: 185 QRS: -46 QRSD: 111 T: 111 QT: 397 QTc: 467 Interpretive Statements Sinus rhythm Left atrial enlargement RSR' in V1 or V2, probably normal variant Inferior infarct, old Lateral leads are also involved Compared to ECG 03/14/2020 08:06:07 RSR' in V1 or V2 now present Myocardial infarct finding still present Electronically Signed On 03-14-2020 17:49:42 CDT by Eduardo Carr [email or web address] <ELECTRONICALLY SIGNED> By: Eduardo Carr MD, FACC 03/14/20 1749 05 05 Eduardo Carr MD, FACC /EPI
[2020-03-15 01:40] VITALS: BP 147/83
[2020-03-15 03:38] LABS: HEMATOCRIT 42.9 % (42.0-52.0); HEMOGLOBIN 13.7 gm/dL (14.0-18.0); MCHC 31.9 g/dL (28.0-37.0); MCV 75.4 fL (80.0-100.0); MPV 7.6 fl. (7.2-11.1); RBC 5.69 mil/uL (4.50-6.00); RDW-CV 16.1 % (10.5-14.5); WBC 14.2 thou/uL (4.0-11.0)
[2020-03-15 04:00] VITALS: BP 135/80
[2020-03-15 04:12] LABS: ALBUMIN 3.5 g/dL (3.4-5.0); ALKALINE PHOSPHATASE 57 U/L (46-116); ANION GAP 12 mmol/L (7-16); BUN 27 mg/dL (7-18); CALCIUM 8.9 mg/dL (8.5-10.1); CHLORIDE 100 mmol/L (98-107); CO2 26 mmol/L (21-32); CREATININE 1.1 mg/dL (0.6-1.3); GLUCOSE 247 mg/dL (70-99); POTASSIUM 3.1 mmol/L (3.5-5.1); SGOT 8 U/L (15-37); SGPT 22 U/L (30-65); SODIUM 138 mmol/L (136-145); TOTAL PROTEIN 6.5 g/dL (6.4-8.2); TROPONIN-I LEVEL <0.06 ng/mL (<0.06)
--- NOTE | 2020-03-15 06:49 | NUR ---
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 PT DENIES CHEST PAIN THIS SHIFT. SEROSANGUENOUS DRANAGE ON DRESSING TO RIGHT GROIN. NEGATIVE SEPSIS SCREENING. HOURLY ROUNDING COMPLETED. CALL LIGHT WITHIN REACH.
[2020-03-15 08:00] VITALS: BP 157/81
[2020-03-15 10:45] VITALS: BP 143/87
--- NOTE | 2020-03-15 10:47 | D ---
[address] [address] DISCHARGE SUMMARY Name: CANDICEANI Room: [address] Ge Mcgill#: [id number] Admission: 03/14/20 Attend Phys: Wilbur Rajan MD, Discharge: Date of : 51 Report #: [id number] THIS REPORT FOR: //name// cc: Alexander Acuna Vincent R. DO THIS REPORT FOR: //name// CC: Wilbur Acuna DATE OF SERVICE: 03/15/2020 FINAL DISCHARGE DIAGNOSES: 1. Unstable angina. 2. Coronary artery disease. 3. Status post remote myocardial infarction. 4. Status post coronary artery bypass grafting. 5. Status post percutaneous coronary intervention of the left main and mid circumflex. 6. Type 2 diabetes. 7. Obesity. 8. Hypertension. PROCEDURES: 03/14/2020 -- left heart catheterization, selective coronary arteriography, aortocoronary saphenous vein bypass graft study, and PCI of the left main and mid circumflex. HOSPITAL COURSE: The patient is a very pleasant 64-year-old male with complex coronary artery disease, status post remote coronary artery bypass grafting and more recent PCI. Of late, he has demonstrated angina following a pattern of clinical instability. He has underlying hypertension, diabetes and hyperlipidemia. In that context, I performed cardiac catheterization on 03/14, which revealed 90% mid and distal left main stenosis with 90% ostial circumflex narrowing and 75% mid circumflex narrowing. There was a widely patent DEL REAL graft to the LAD. There was collateralization from the distal LAD to the right coronary artery. Right coronary artery and the graft to that vessel were occluded. Given this data, I performed a complex PCI with arthrotomy/atherectomy and stenting of the left main and angioplasty with stenting of the mid circumflex with 0 and 10% residual narrowing following final stent deployment and CAROLYN 3 flow of the distal vessel. Troponin did not rise at 0.06. Additional lab revealed a sodium of 138, potassium 3.1, BUN 27, creatinine 1.1, glucose 247. White blood cell count 14,200; hemoglobin 13.7; platelets 307,000. [place] [address] DISCHARGE SUMMARY Name: ANI ASTUDILLO Denzel Room: [address]#: [id number] Admission: 03/14/20 Attend Phys: Wilbur Rajan MD, Discharge: Date of : 51 Report #: [id number] In this clinical context, the patient ambulated in the hallways without difficulty, following PCI on 03/14/2020. DISCHARGE MEDICATIONS: He was discharged to home on the following medications: Effient 10 mg daily, aspirin 81 mg daily, metoprolol tartrate 50 mg b.i.d., atorvastatin 40 mg at bedtime, and resumption of previously utilized metformin. I will plan to see him in followup in 4 weeks. <ELECTRONICALLY SIGNED> By: Wilbur Rajan MD, FACC 03/15/20 1047 1034 1042Wilbur Rajan MD, FACC /nt
--- NOTE | 2020-03-15 11:58 | NUR ---
Pt is A&O. Resides at home alone. Independent. No DME. No hx of HH or SNF. Pt had a cath with stents yesterday, discharging to home today, no needs.
[2020-03-15 12:00] VITALS: BP 131/84
--- NOTE | 2020-03-15 13:07 | EKG ---
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1955 Requested By: Wilbur Rajan Order Number: [id number] Reading MD: Bob Randle Measurements Intervals [place] Rate: 82 P: 9 OR: 183 QRS: -51 QRSD: 118 T: 103 QT: 411 QTc: 480 Interpretive Statements Sinus rhythm Probable left atrial enlargement Nonspecific IVCD with LAD Inferior infarct, old Lateral leads are also involved Compared to ECG 03/14/2020 12:06:21 Myocardial infarct finding still present Electronically Signed On 03-15-2020 13:07:04 CDT by Bob Randle [email or web address] <ELECTRONICALLY SIGNED> By: Bob Randle MD, [facility] 03/15/20 1307 Bob Randel MD, [facility] /EPI
[2020-03-15 13:37] VITALS: BP 131/84
--- NOTE | 2020-03-15 15:26 | NUR ---
I ASSUMED CARE OF THE PATIENT AT 0700. HE IS ALERT AND ORIENTED X4 AND IS UP AD ALANA. HE WAS STABLE FOR DISCHARGE AFTER EPI WAS INJECTED INTO THE FEMORAL SITE. CARDIOLOGY FOLLOWUP WAS SCHEDULED. BLOOD SUGAR IS MONITORED AND TREATED WITH INSULIN. POTASSIUM WAS REPLACED. PATIENT NEEDS WERE MET DURING HOURLY ROUNDING. DISCHARGED TO HOME WITH HIS AT 1350.
--- NOTE | 2020-03-15 16:34 | CARD ---
[address] [address] CARDIAC CATH REPORT Name: ANI ASTUDILLO Room: [address] Ge Mcgill#: [id number] Admission: 03/14/20 Attend Phys: Wilbur Rajan MD, Discharge: 03/15/20 Date of : 51 Report #: [id number] THIS REPORT FOR: //name// cc: Alexander Acuna Vincent R. DO ~ APPROVED REPORT Study performed: 03/14/2020 08:35:44 Patient Details Patient Status: Out-Patient Room #: The patient is a 64 year-old male Event Personnel Wilbur Rajan Braiding Machine Tender, Lindsey Landry RN RN, Lester Carrasco Scrub, Osiris Villalobos RTR Monitor Procedures Performed Art Access - R femoral artery, Left Heart Cath w/ LV, Athrectomy and BRENDAN Left Main, Brendan CIRC Indication Unstable angina Risk Factors Hypertension, Diabetes Previous Procedures/Diagnoses Previous CABGPrevious PCI Admission/Lab Medications/Medications given during procedure Angiomax IV 15 ml, Angiomax Drip IV 35.2 ml per hr, Angiomax IV 4 ml, Effient PO 30 mg, Aspirin PO 162 mg Procedure Narrative The patient was brought electively to the Cardiac Catheterization Laboratory and was prepped and draped in a sterile manner. The right femoral was infiltrated with 2% Lidocaine subcutaneous anesthesia. A 6F [place] sheath was inserted into the . Coronary angiography was performed using coronary diagnostic catheters. The left coronary system was accessed and visualized with a 6F JL4 catheter. The left ventricle was accessed and visualized with a 6F Straight Pigtail catheter. Left ventricular/Aortic Valve gradient assessed via catheter pullback. Left ventriculogram was performed in PERRIN projection. Pre-demployment femoral angiogram was [place] [address] CARDIAC CATH REPORT Name: ANI ASTUDILLO Room: [address]#: [id number] Admission: 03/14/20 Attend Phys: Wilbur Rajan MD, Discharge: 03/15/20 Date of : 51 Report #: [id number] device was deployed with a 6 Fr Angioseal STS. The patient tolerated the procedure well and there were no complications associated with the procedure. There was no hematoma. The DEL REAL graft was accessed with a 6F JR4 catheter and visualized with a 6F IM catheter. Intraoperative Conscious Sedation Sedation start time: 09:30 Case end Time: 11:10 Fentanyl 25 mcg Versed 1 mg Fluoro Time: 31.2 minutes Dose: DAP 877162 cGycm2 5274 mGy Contrast Type and Amount: Visipaque 370 ml [place] Artery Percent Stenosis 1. Single patent graft, DEL REAL graft to the LAD with good flow to the distal LAD Diagnostic Cath Left Main 90% calcified mid and distal left main coronary stenosis LAD 90% proximal LAD narrowing with reciprocal flow distally reflecting a patent DEL REAL graft Circumflex 90% ostial stenosis with 75% mid vessel narrowing Right Coronary 100% occlusion proximally by prior cineangiogram with belp-hb-kwnqf collaterals from the LAD through the septum to the distal right coronary artery Hemodynamics The aortic pressure is 142/80 mmHg with a mean of 84 mmHg. The left ventricular pressure is 144/-1 mmHg with a mean of mmHg. The left ventricular end diastolic pressure is 16 mmHg. There was no gradient across the aortic valve upon pullback. PCI Technique Lesion Anticoagulation was achieved with Angiomax. Patient was preloaded with Angiomax IV 15 ml. Percutaneous coronary intervention was performed on the Left Main. The lesion stenosis prior to intervention was 90% with CAROLYN 3 flow. A 6FR XB LAD 3.0 100CM Guide Catheter was used to engage the left main ostium. A BMW 190cm Interventional Guidewire was used to cross the lesion. BALLOON DILATION A Balloon catheter Mini Trek RX 1.2X8 was inserted and inflated up to 18.00atm for 9seconds. Additional Inflation: 18.00atm [place] 10[place]. [place] [address] CARDIAC CATH REPORT Name: ANI ASTUDILLO Room: [address] M.R.#: [id number] Admission: 03/14/20 Attend Phys: Wilbur Rajan MD, Discharge: 03/15/20 Date of : 51 Report #: [id number] A balloon catheter Mini Trek RX 2.0 x 8 was inserted and inflated up to 18 julia for 14 seconds; 20 julia for 11 seconds. A balloon catheter NC Trek RX 2.75 x 8 was inserted and inflated up to 10 julia for 4 seconds; 18 julia for 20 seconds; 22 julia for 9 seconds. An Athrectomy cutting balloon AngioSculpt PTCA 2.5 x 10mm was inserted and inflated up to 16 julia for 12 seconds; 18 julia for 10 second. STENT DEPLOYMENT A drug-eluting stent [place]ford RX Stent 2.75X8mm was inserted and inflated up to 16.00atm for 8seconds. Additional Inflation: 20.00atm for 6seconds. Additional Inflation: 20.00atm for 5seconds. POST STENT DEPLOYMENT BALLOON DILATION A Balloon catheter NC Euphora 3.25x8 was inserted and inflated up to 14.00atm for 7seconds. Additional Inflation: 15.00atm for 6seconds. Final angiography reveals 10 % stenosis with CAROLYN 3 flow. COMMENTS Procedure was technically complex by severe calcific stenosis of the left main and ostial circumflex requiring significant lesion preparation and atherotomy/atherectomy prior to stent deployment PCI Technique Lesion 2 Percutaneous Coronary Intervention was performed on the mid circumflex artery segment. Patient was preloaded with Angiomax IV 15 ml. The lesion stenosis prior to intervention was 75% with CAROLYN 3 flow. A 6FR XB LAD 3.0 100CM Guide Catheter was used to engage the lm ostium. A BMW 190cm Interventional Guidewire was used to cross the lesion. Balloon Dilation A Balloon catheter Mini Trek RX 2.0 X 8 was inserted and inflated up to 16.00atm for 8seconds. Stent Deployment A drug-eluting stent Rex[place] RX Stent 2.25X8mm was inserted and inflated up to 12.00atm for 7seconds. Additional Inflation: 14.00atm for 6seconds. Final angiography reveals 10 % stenosis with CAROLYN [address] Conclusion [address] [address] CARDIAC CATH REPORT Name: ANI ASTUDILLO Room: [address] BekahPastor#: [id number] Admission: 03/14/20 Attend Phys: Wilbur Rajan MD, Discharge: 03/15/20 Date of : 51 Report #: [id number] 1. Severe multivessel coronary artery disease characterized by the following: A 90% heavily calcified left main coronary stenosis B 90% ostial circumflex stenosis with 75% mid vessel narrowing C previously defined total occlusion of the right coronary artery proximally 2. Graft study characterized by the following: A single patent graft, DEL REAL graft to the LAD with good filling of the distal LAD and collateral filling from the LAD through the septum to the distal right coronary artery 3. Normal left ventricular systolic function estimated ejection fraction being 60% 4. Mild elevation of left ventricular end-diastolic pressure at rest 5. Successful PCI with deployment of drug-eluting stent after atherotomy/atherectomy of the 90% left main stenosis with 10% residual narrowing 6. Successful PCI with deployment of drug-eluting stent at site of 75% mid circumflex stenosis with 10% residual narrowing and CAROLYN-3 flow to the distal vessel Recommendations Cardiac Rehabilitation Referral Cardiac Risk Reduction Program Medications Administered Aspirin (any) Prasugrel Diagnostic Cath Approved by: Wilbur Rajan MD Date/Time: 03/15/2020 16:31:44 <ELECTRONICALLY SIGNED> By: Wilbur Rajan MD, [facility] 03/15/20 1634 1634 1634Jorosemary Rajan MD, FACC /INF
== END 2020-03-15 13:56 | disposition home or self-care (01) ==
LOC: M.CL 07:28 → M.TBA-CV 11:18 → M.2W 21:03
PROVIDERS: ADMIT Internal Medicine; ATTEND Internal Medicine
DX: I25.110 Atherosclerotic heart disease of native coronary artery with unstable angina pectoris (principal); I25.2 Old myocardial infarction; I10 Essential (primary) hypertension; E66.9 Obesity, unspecified; E78.5 Hyperlipidemia, unspecified; E11.9 Type 2 diabetes mellitus without complications; Z95.1 Presence of aortocoronary bypass graft; Z79.82 Long term (current) use of aspirin; Z79.899 Other long term (current) drug therapy

== ENCOUNTER → 2020-07-09 | Outpatient (CLI) | payer MEDICARE, OTHER ==
[~2020-07-09] MED LIST changes: +ASA81BEC PO; +CANDESARTAN-HC1 EAC2 PO; +FARXIGA10 MG PO; +FREESTYLE LANC1 EACH MISCELL; +NIACIN ER1000 MG PO; +NORVASC 2.5 MG2.5 M1 PO; +NOVOLOG100 UNIT/M SUBQ; +PROPRANOLOL PO; +TUMS ULTRA STR470 MG PO; +VASCEPA1 GM PO
--- NOTE | 2020-07-09 16:34 | CARDNUC ---
[place] [address] CARDIAC NUCLEAR IMAGING REPORT Name: ANI ASTUDILLO Room: [facility]#: [id number] Admission: 07/09/20 Attend Phys: Jorge Luis Montoya Discharge: Date of : 51 Date of Service: 07/09/20 1634 Report #: [id number] THIS REPORT FOR: cc: Alexander Acuna,Alexander Gottlieb,Francisco Payton MD ~ APPROVED REPORT Imaging Protocol: Stress Tc-99m/Rest Tc-99m 2 days Study performed: 07/09/2020 09:30:00 Indication: Chest pain, insonia, gerd, tremors,polycythemia, light headed Patient Location: Out-Patient Stress Tech: Marimar Stallworth Stress Nurse: Mary Jane Pittman RN Ht: 5 ft 10 in Wt: 222 lbs BSA: 2.18 m2 HR: 102 bpm BP: 155/91 mmHg BMI: 31.85 Medical History Medications: AMLODIPINE, ASA 81MG, ATORVASTATIN, CANDESARTAN HCTZ, FARXIGA, ICOSAPENT, METOPROLOL, PRASUGREL, PROPRANOLOL, FISH OIL,NTG, METFORMIN Allergies: iodine, januva, ozempic Cardiac Risk Factors: Age, Past Smoker, Hyperlipidemia, HTN, Diabetes (insulin) Previous Cardiac Procedures: CABG, Myocardial infarction, PCI, CAD Resting Data Rest SPECT myocardial perfusion imaging was performed in supine position 30 minutes following the intravenous injection of 10.0 mCi of Tc-99m Sestamibi. Time of rest injection: 9:50 The images were gated to evaluate regional wall motion and calculate left ventricular ejection fraction. Administration Route: IV Administration Site: Right Arm Pharmacologic Stress Pharmacologic stress test was performed by injecting Regadenoson 0.4 mg IV push over 10-15 seconds immediately followed [place] [address] CARDIAC NUCLEAR IMAGING REPORT Name: ANI ASTUDILLO Room: [facility]#: [id number] Admission: 07/09/20 Attend Phys: Jorge Luis Montoya Discharge: Date of : 51 Date of Service: 07/09/20 1634 Report #: [id number] injection of 30.9 mCi of Tc-99m Sestamibi. Time of stress injection: 12:00 Administration Route: IV Administration Site: Right Arm Heart Rate at time of stress injection: 115 bpm. Gated Stress SPECT was performed 45 minutes after stress injection. The images were gated to evaluate regional wall motion and calculate left ventricular ejection fraction. Prone imaging was performed. Stress Test Details Stress Test: Pharmacologic stress testing performed using 0.4 mg of regadenoson per 5 mL given IV over 10 seconds. HR Max Heart Rate (APMHR): 154 bpm Resting HR: 102 bpm Target HR (85% APMHR): 130 bpm Max HR Achieved: 136 bpm % of APMHR: 88 Recovery HR: 110 bpm BP Resting BP: 155/91 mmHg Max BP: 181/84 mmHg Recovery BP: 149/76 mmHg ECG Resting ECG: Sinus Rhythm Stress ECG: Sinus Rhythm, nonspecific ST-T abnormalities ST Change: Non-ischemic Study Quality Study: Good Study Data Post stress, the left ventricular ejection was 53%.. TID = 0.94. Perfusion There is a medium area of moderately reduced uptake in the basal and mid segment of the inferior wall which is seen on the stress images and improves on the resting images. This area thickens and moves normally and is most consistent with ischemia. Wall Motion Normal left [place] [address] CARDIAC NUCLEAR IMAGING REPORT Name: ANI ASTUDILLO Room: [facility]#: [id number] Admission: 07/09/20 Attend Phys: Jorge Luis Montoya Discharge: Date of : 51 Date of Service: 07/09/20 1634 Report #: [id number] Nuclear Conclusion ECG Findings: negative for ischemia Clinical Findings: non-diagnostic Nuclear Findings: positive for ischemia Exercise Capacity: not assessed Left Ventricular Function: normal There is a nontransmural infarct in the mid to basal inferior wall, with moderate kamaljit-infarct ischemia. There is normal LV systolic function, with mild hypokinesis of the basal inferior segment. <ELECTRONICALLY SIGNED> By: Francisco Mix MD 07/09/20 1634 1634 1634 Francisco Mix MD /INF
== END ==
LOC: M.NUC 04-20 11:31 → M.CRD 09:00 → M.NUC 09:23
PROVIDERS: ATTEND Internal Medicine
DX: I25.728 Atherosclerosis of autologous artery coronary artery bypass graft(s) with other forms of angina pectoris (principal); E11.9 Type 2 diabetes mellitus without complications; Z95.5 Presence of coronary angioplasty implant and graft

== ENCOUNTER 2020-08-22 07:18 | Observation (INO) | payer MEDICARE, OTHER ==
[~2020-08-22] VITALS: Ht 177.8 cm; Wt 101.2 kg
[2020-08-22] VITALS (19 sets, daily range): BP systolic 133–167; BP diastolic 82–96
[~2020-08-22 07:18] MED LIST changes: +HUMULIN R100 UNIT/1 SUBQ
[2020-08-22 09:18] LABS: HEMATOCRIT 50.7 % (42.0-52.0); HEMOGLOBIN 16.2 gm/dL (14.0-18.0); MCH 24.8 pg (26.0-34.0); MCV 77.3 fL (80.0-100.0); MPV 7.7 fl. (7.2-11.1); RBC 6.56 mil/uL (4.50-6.00); RDW-CV 16.6 % (10.5-14.5); WBC 10.7 thou/uL (4.0-11.0)
[2020-08-22 09:34] LABS: ANION GAP 17 mmol/L (7-16); BUN 23 mg/dL (7-18); CALCIUM 9.5 mg/dL (8.5-10.1); CHLORIDE 96 mmol/L (98-107); CO2 24 mmol/L (21-32); CREATININE 1.1 mg/dL (0.6-1.3); GLUCOSE 401 mg/dL (70-99); POTASSIUM 3.7 mmol/L (3.5-5.1); SODIUM 137 mmol/L (136-145)
[2020-08-22 09:39] LABS: ALKALINE PHOSPHATASE 67 U/L (46-116); CHOLESTEROL 159 mg/dL (<200); HDL CHOLESTEROL 54 mg/dL (>40); LDL CHOLESTEROL 93 mg/dL (<100); SGOT 12 U/L (15-37); SGPT 29 U/L (30-65); TC:HDL 2.9 Ratio (Not establshd); TOTAL BILIRUBIN 0.9 mg/dL (<0.1-1.0); TOTAL PROTEIN 7.7 g/dL (6.4-8.2); TRIGLYCERIDE 64 mg/dL (<150); VLDL 13 mg/dL (<40)
[2020-08-22 09:44] LABS: APTT 23.3 Seconds (25.0-31.3); PROTIME 10.8 Seconds (9.20-11.50); SERUM ASSESSMENT Clear
--- NOTE | 2020-08-22 10:17 | EKG ---
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: : 1955 Requested By: Wilbur Rajan Order Number: [id number] Reading MD: Wilbur Rajan Measurements Intervals [place] Rate: 78 P: 15 MA: 198 QRS: -56 QRSD: 112 T: 60 QT: 406 QTc: 463 Interpretive Statements Sinus rhythm Probable left atrial enlargement Borderline IVCD with LAD Abnormal R-wave progression, late transition Inferior infarct, old Compared to ECG 03/15/2020 08:44:55 No significant changes Electronically Signed On 08-22-2020 10:17:27 CDT by Wilbur Rajan [email or web address] <ELECTRONICALLY SIGNED> By: Wilbur Rajan MD, [facility] 08/22/20 1017 0852 0852 Wilbur Rajan MD, [facility] /EPI
--- NOTE | 2020-08-22 14:30 | CARD ---
[address] [address] CARDIAC CATH REPORT Name: CANDICEANI MCKEON Denzel Room: [address] Ge Mcgill#: [id number] Admission: 08/22/20 Attend Phys: Wilbur Rajan MD, Discharge: Date of : 51 Report #: [id number] THIS REPORT FOR: cc: Alexander Acuna Vincent R. DO ~ Wilbur Rajan MD [facility] APPROVED REPORT Study performed: 08/22/2020 09:13:28 Patient Details Patient Status: Out-Patient Room #: The patient is a 65 year-old male Event Personnel Wilbur Rajan Stick Puller, Isabela Kowalski RN RN, Bhavin Braden RTR Scrub, Saba Guerra RTR Monitor Procedures Performed Art Access - R femoral artery Left Heart Cath Coronaries, Bypass Grafts ALEX Place w/wo Plasty Single CIRC Hemostasis w/ Angioseal Indication Unstable angina Risk Factors Obesity, Hypercholesterolemia, Hypertension, Diabetes Previous Procedures/Diagnoses Previous CABGPrevious PCI Admission/Lab Medications/Medications given during procedure Oxygen Nasal cannula 2 l per min, 0.9% Sodium Chloride IV 75 ml per hr, Solumedrol IV 100 mg, Benadryl IV 50 mg, Fentanyl IV 25 mcg, Midazolam (Versed) IV 2 mg, Lidocaine Subcut 14 ml, Midazolam (Versed) IV 1 mg, Angiomax IV 15 ml, Angiomax Drip IV 34.6 ml per hr, Aspirin PO 81 mg, Effient PO 30 mg Procedure Narrative The patient was brought electively to the Cardiac Catheterization Laboratory and was prepped and draped in a sterile manner. The right femoral was infiltrated with 2% Lidocaine subcutaneous anesthesia. IV conscious sedation was [place] [address] CARDIAC CATH REPORT Name: ANI ASTUDILLO Denzel Room: [address] MPastorR.#: [id number] Admission: 08/22/20 Attend Phys: Wilbur Rajan MD, Discharge: Date of : 51 Report #: [id number] monitoring and was performed in the presence of a registered nurse who was an independent trained observer other than the physician performing the procedure. A [place] 6 FR sheath was inserted into the right femoral artery. Coronary angiography was performed using coronary diagnostic catheters. The right coronary system was accessed and visualized with a Diagnostic 6 Fr JR 4 catheter. The left coronary system was accessed and visualized with a Diagnostic 6 Fr JL 4 catheter. The left ventricle was accessed and visualized with a Diagnostic 6 Fr Pigtail catheter. Left ventricular/Aortic Valve gradient assessed via catheter pullback. Left ventriculogram was performed in PERRIN projection. Pre-demployment femoral angiogram was performed . Closure device was deployed with a Fr Angioseal STS 6Fr. The patient tolerated the procedure well and there were no complications associated with the procedure. There was no hematoma. The DEL REAL graft was accessed and visualized using a Diagnostic 6 Fr IM catheter. Intraoperative Conscious Sedation Sedation start time: 10:22 Case end Time: 11:55 Fentanyl 50 mcg Versed 3 mg Fluoro Time: 40.1 minutes Dose: DAP [id number] cGycm2 400 mGy Contrast Type and Amount: Visipaque 400 ml [place] Artery Percent Stenosis 1. Widely patent DEL REAL graft to the mid LAD 2. Previously defined totally occluded saphenous vein grafts to the circumflex and right coronary artery Diagnostic Cath Left Main 10% distal narrowing LAD 90% proximal stenosis with 100% mid vessel occlusion Circumflex Widely patent ostial proximal stent with 30% proximal narrowing widely patent mid vessel stent and 80% distal stenosis Right Coronary 100% occlusion proximally with faint [id number] collaterals filling a small portion of the distal right coronary artery Left Ventriculography The left ventricle is normal in size [place] [address] CARDIAC CATH REPORT Name: CANDICEANI MCKEON Denzel Room: [address]#: [id number] Admission: 08/22/20 Attend Phys: Wilbur Rajan MD, Discharge: Date of : 51 Report #: [id number] left ventricular ejection fraction is estimated to be 65%. Left ventricular wall motion abnormalities are not present. There is no mitral insufficiency. Hemodynamics The aortic pressure is 146/80 mmHg with a mean of 112 mmHg. The left ventricular pressure is 153/0 mmHg with a mean of mmHg. The left ventricular end diastolic pressure is 16 mmHg. There was no gradient across the aortic valve upon pullback. PCI Technique Lesion Anticoagulation was achieved with Angiomax Drip. Patient was preloaded with Angiomax IV 15 ml. Percutaneous coronary intervention was performed on the distal circumflex artery segment. The lesion stenosis prior to intervention was 80% with CAROLYN 3 flow. A 6FR XB LAD 3.0 100CM Guide Catheter was used to engage the left ostium. A IG: BMW 190cm Interventional Guidewire was used to cross the lesion. BALLOON DILATION A Balloon catheter Mini Trek RX 1.2X8 was inserted and inflated up to 20.00atm for 10seconds. A balloon catheter Mini Trek RX 2.25 X 8 was inserted and inflated up to12 EDILMA for 12 seconds and 14 EDILMA for 17 seconds. STENT DEPLOYMENT A drug-eluting stent [place] RX Stent 2.0X8mm was inserted and inflated up to 10.00atm for 10seconds. Additional Inflation: 10.00atm for 5seconds. A drug-eluting stent [place] RX Stent 2.0 X 8mm was inserted and inflated up to 10 EDILMA for 11 seconds, 10 EDILMA for 8 seconds, and 12 EDILMA for 11 seconds. Final angiography reveals 0 % stenosis with CAROLYN 3 flow. COMMENTS The PCI was technically complex by virtue of severe calcification throughout the circumflex and multiple previously deployed stents. This made access to the distal circumflex difficult requiring multiple wires and the new wire technique. Conclusion 1. Severe coronary artery disease characterized by the following: A 10% distal left main coronary artery narrowing [facility] [address] [facility] [place] [address] CARDIAC CATH REPORT Name: ANI ASTUDILLO Room: [address] Ge MelloRPastor#: [id number] Admission: 08/22/20 Attend Phys: Wilbur Rajan MD, Discharge: Date of : 51 Report #: [id number] B 90% proximal LAD stenosis with 100% mid vessel occlusion C widely patent ostial proximal circumflex stent with 30% proximal narrowing and a widely patent mid circumflex stent with 80% distal stenosis C dominant right coronary artery was totally occluded proximally with minimal right to right and faint fwqc-gj-onnws collaterals filling the distal right coronary system 2. Graft study characterized by the following: A widely patent DEL REAL graft to the LAD with faint collaterals from the LAD to the distal right coronary artery B previously defined totally occluded saphenous vein grafts to the right coronary artery and circumflex 3. Mild elevation of left ventricular end-diastolic pressure at rest 4. Normal left ventricular systolic function, estimated ejection fraction being 65% 5. Successful PCI with deployment of 2 drug-eluting stents at the site of 80% distal circumflex stenosis with 0% residual narrowing and CAROLYN-3 flow to the distal vessel Recommendations Cardiac Risk Reduction Program Aggressive Medical Therapy Medications Administered Prasugrel Diagnostic Cath Approved by: Wilbur Rajan MD Date/Time: 08/22/2020 14:26:03 <ELECTRONICALLY SIGNED> By: Wilbur Rajan MD, [facility] 08/22/20 1430 29 1430Wilbur Rajan MD, FAC /INF
--- NOTE | 2020-08-22 14:41 | EKG ---
[place] [address] ELECTROCARDIOGRAM REPORT Name: ANI ASTUDILLO Room: [address]R.#: [id number] Admission: 08/22/20 Attend Phys: Jorge Luis Montoya Discharge: Date of : 51 Date of Service: 08/22/20 1423 Report #: [id number] THIS REPORT FOR: //name// [facility] Test Date: 2020-08-22 Test Time: 14:23:55 Pat Name: ANI ASTUDILLO Department: Room: [facility] Gender: M Bi Consultant: : 1955 Requested By: Wilbur Rajan Order Number: [id number] Reading MD: Wilbur Rajan Measurements Intervals [place] Rate: 96 P: 24 MD: 184 QRS: -53 QRSD: 107 T: 89 QT: 376 QTc: 476 Interpretive Statements Sinus rhythm Abnormal R-wave progression, late transition Inferior infarct, old Baseline wander in lead(s) II Compared to ECG 08/22/2020 08:52:52 No significant changes Electronically Signed On 08-22-2020 14:41:02 CDT by Wilbur Rajan [email or web address] <ELECTRONICALLY SIGNED> By: Wilbur Rajan MD, [facility] 08/22/20 1441 1423 1423 Wilbur Rajan MD, [facility] /EPI
[2020-08-23 04:24] LABS: MCH 24.7 pg (26.0-34.0); MCHC 32.2 g/dL (28.0-37.0); MCV 76.5 fL (80.0-100.0); MPV 7.7 fl. (7.2-11.1); RBC 5.75 mil/uL (4.50-6.00); RDW-CV 16.6 % (10.5-14.5); WBC 12.4 thou/uL (4.0-11.0)
[2020-08-23 04:47] VITALS: BP 137/80
[2020-08-23 05:08] LABS: ALBUMIN 3.3 g/dL (3.4-5.0); ALKALINE PHOSPHATASE 49 U/L (46-116); ANION GAP 13 mmol/L (7-16); BUN 29 mg/dL (7-18); CALCIUM 9.1 mg/dL (8.5-10.1); CHLORIDE 101 mmol/L (98-107); CO2 23 mmol/L (21-32); GLUCOSE 243 mg/dL (70-99); POTASSIUM 3.1 mmol/L (3.5-5.1); SGOT 8 U/L (15-37); SGPT 22 U/L (30-65); SODIUM 137 mmol/L (136-145); TOTAL BILIRUBIN 0.9 mg/dL (<0.1-1.0); TOTAL PROTEIN 6.4 g/dL (6.4-8.2); TROPONIN-I LEVEL <0.06 ng/mL (<0.06)
[2020-08-23 05:17] LABS: HEMOGLOBIN 14.2 gm/dL (14.0-18.0)
[2020-08-23 08:00] VITALS: BP 127/79
[2020-08-23 10:07] VITALS: BP 127/79
[2020-08-23 10:08] VITALS: BP 127/79
--- NOTE | 2020-08-23 10:21 | EKG ---
[place] [address] ELECTROCARDIOGRAM REPORT Name: CANDICEANI Room: [address]R.#: [id number] Admission: 08/22/20 Attend Phys: Jorge Luis Montoya Discharge: Date of : 51 Date of Service: 08/23/20 0639 Report #: [id number] THIS REPORT FOR: //name// 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: ABDIAS : 1955 Requested By: Wilbur Rajan Order Number: [id number] Reading MD: Eduardo Carr Measurements Intervals [place] Rate: 79 P: 21 NC: 197 QRS: -47 QRSD: 114 T: 84 QT: 410 QTc: 471 Interpretive Statements Sinus rhythm Probable left atrial enlargement Borderline IVCD with LAD Inferior infarct, old Compared to ECG 08/22/2020 14:23:55 No significant changes Electronically Signed On 08-23-2020 10:21:24 CDT by Eduardo Carr [email or web address] <ELECTRONICALLY SIGNED> By: Eduardo Carr MD, [facility] 08/23/20 1021 0639 0639 Eduardo Carr MD, [facility] /EPI
[2020-08-23 10:35] VITALS: BP 167/95
[2020-08-23 13:01] VITALS: BP 127/79
--- NOTE | 2020-08-24 11:13 | D ---
[address] [address] DISCHARGE SUMMARY Name: ANI ASTUDILLO Room: [address] Ge Mcgill#: [id number] Admission: 08/22/20 Attend Phys: Wilbur Rajan MD, Discharge: 08/23/20 Date of : 51 Report #: [id number] THIS REPORT FOR: cc: Alexander Acuna Vincent R. DO ~ Wilbur Rajan MD [facility] The patient is discharged from [facility] on 08/23/2020. FINAL DISCHARGE DIAGNOSES: 1. Unstable angina. 2. Coronary artery disease. 3. Status post remote coronary artery bypass grafting. 4. Status post percutaneous coronary intervention to the circumflex on 08/23/2020. 5. Hypertension. 6. Hyperlipidemia. 7. Type 2 diabetes. PROCEDURES: On 08/22/2020, left heart catheterization, selective coronary arteriography and percutaneous coronary intervention to the circumflex. HOSPITAL COURSE: The patient is a very pleasant 65-year-old male with complex coronary artery disease, status post remote coronary artery bypass grafting and more recent percutaneous coronary interventions. He had intervention to the circumflex previously in its proximal portion. More recently, he has had recrudescence chest pain with exertion. His stress test revealed inducible inferobasilar ischemia. Reviewing the cineangiograms, I felt there was a unapproached lesion in the posterior division of the circumflex. He also has a chronic total occlusion of the right coronary artery with faint left to right collaterals from the LAD to the right. The LAD is provided flow via DEL REAL graft with the [place] LAD being totally occluded. On 08/22/2020, I performed cardiac catheterization, which revealed significant distal stenosis in the circumflex and 2.0 x 8 mm [place] drug-eluting stents were deployed in the distal circumflex with 0% residual narrowing and CAROLYN 3 flow of the distal vessel. Troponin did not rise with values less than 0.06. Labs additionally revealed sodium 137, potassium 3.1 with a supplement given pre-discharge, BUN 29, creatinine 1.0, glucose 243. White blood cell count 12,400, hemoglobin 14.2, platelets 270,000. The patient was ambulated in the hallways without difficulty and there was good hemostasis at the right femoral site of catheterization. DISCHARGE MEDICATIONS: Included metoprolol succinate 50 mg b.i.d., fish oil 1000 mg 2 at bedtime, aspirin 81 mg daily, atorvastatin 40 mg at bedtime, metformin 1000 mg b.i.d. to be resumed on 08/24/2020, [place] [address] DISCHARGE SUMMARY Name: ANI ASTUDILLO Room: [address] Ge MRodger#: [id number] Admission: 08/22/20 Attend Phys: Wilbur Rajan MD, Discharge: 08/23/20 Date of : 51 Report #: [id number], Centrum Silver 1 tablet daily, amlodipine 10 mg daily, p.r.n. sublingual nitroglycerin as needed, prasugrel 10 mg daily, candesartan/hydrochlorothiazide 32/25 one tablet daily, propranolol 10 mg b.i.d., niacin 1000 mg at bedtime, Farxiga 10 mg daily, calcium carbonate 500 mg as needed, Vascepa 1 gram 2 tablets daily and varying doses of regular insulin for sliding scale dose at home. We will plan to see the patient in followup in September with an echocardiogram scheduled at that visit. Therefore, the patient is discharged to home in stable condition on the aforementioned medications with followup as iterated above. <ELECTRONICALLY SIGNED> By: Wilbur Rajan MD, FACC 08/24/20 1113 0935 0951Wilbur Rajan MD, FAC /nt
== END 2020-08-23 12:55 | disposition home or self-care (01) ==
LOC: M.CL 07:18 → M.TBA-CV 12:12 → M.2W 12:12
PROVIDERS: ADMIT Internal Medicine; ATTEND Internal Medicine
DX: I25.110 Atherosclerotic heart disease of native coronary artery with unstable angina pectoris (principal); Z20.822 Contact with and (suspected) exposure to COVID-19; E11.9 Type 2 diabetes mellitus without complications; E78.5 Hyperlipidemia, unspecified; I10 Essential (primary) hypertension; Z91.041 Radiographic dye allergy status; Z88.8 Allergy status to other drugs, medicaments and biological substances